=== PATIENT | female | born 1955 | race African-American/Black ===

== ENCOUNTER 2017-04-09 08:58 | Emergency (ER) | payer BC ==
[~2017-04-09] VITALS: Ht 160 cm; Wt 95.0 kg
[~2017-04-09 08:58] MED LIST: AMLODIPINE BESYL5 MG OR; AMLODIPINE BESYL5 MG PO; AMLODIPINE5 MG PO; AUGMENTIN875TAB PO; BENZONATATE200 MG PO; BRACE XX; COLCHICINE PO; COLCRYS PO; DOXYCYCL HYC100 MG PO; FLEXERIL10 MG PO; FLONASE NASAL50 MCG; FLUARIX QUADRIV1 IN1 IM; INDOCIN50 MG/CAP PO; INDOMETHACIN50 MG PO; LEVAQUIN750 MG PO; LORTAB 5/3255 MG PO; METFORMIN500 M1 PO; MUCINEX600 MG PO; NAPROSYN500 MG PO; NAPROXEN500 MG PO; PRAVASTATIN SOD10 MG PO; PREDNISONE20 MG PO; SIMETHICONE80 M2 PO
[2017-04-09] MEDS ORDERED: CORTISPORIN OTI10 M2 AU (09:35)
[2017-04-09] MEDS ORDERED: ERYTHROMYCIN O3.5 GM OD (09:35)
[2017-04-09] MEDS ORDERED: AMOXICILLIN500 M2 PO (09:35)
[2017-04-09 09:36] VITALS: BP 174/79
== END 2017-04-09 09:45 | disposition home or self-care (01) | DRG 153 ==
LOC: ED 08:58
DX: H66.92 Otitis media, unspecified, left ear (principal); H10.9 Unspecified conjunctivitis; H92.01 Otalgia, right ear

== ENCOUNTER 2018-04-08 09:26 | Day surgery (SDC) | payer BC ==
[~2018-04-08] VITALS: Ht 160 cm; Wt 94.8 kg
[~2018-04-08 09:26] MED LIST changes: +AMOXICILLIN500 M2 PO; +ASPIRIN ENTERIC81 MG PO; +CLARITIN10 M1 PO; +CORTISPORIN OTI10 M2 AU; +ERYTHROMYCIN O3.5 GM OD; +MOBIC7.5 M1 PO; +PRAVASTATIN SOD20 MG PO
[2018-04-08 12:45] VITALS: BP 168/73
== END 2018-04-08 12:22 | disposition home or self-care (01) | DRG 395 ==
LOC: ENDO 09:26 → ORM 12:40 → ENDO 12:40 → ORM 12:55
PROVIDERS: ATTEND Internal Medicine Gastroenterology
PROC: 0DBN8ZX Excision of Sigmoid Colon, Via Natural or Artificial Opening Endoscopic, Diagnostic (ICD-10-PCS; principal; 2018-04-08)
PROC: 0DBK8ZX Excision of Ascending Colon, Via Natural or Artificial Opening Endoscopic, Diagnostic (ICD-10-PCS; 2018-04-08)
PROC: 0DBH8ZX Excision of Cecum, Via Natural or Artificial Opening Endoscopic, Diagnostic (ICD-10-PCS; 2018-04-08)
PROC: 3E0H8KZ Introduction of Other Diagnostic Substance into Lower GI, Via Natural or Artificial Opening Endoscopic (ICD-10-PCS; 2018-04-08)
DX: D12.2 Benign neoplasm of ascending colon (principal); D12.0 Benign neoplasm of cecum; K63.5 Polyp of colon; K64.4 Residual hemorrhoidal skin tags; K64.8 Other hemorrhoids; K62.3 Rectal prolapse; I10 Essential (primary) hypertension; E66.9 Obesity, unspecified; E78.00 Pure hypercholesterolemia, unspecified; K21.9 Gastro-esophageal reflux disease without esophagitis; F17.200 Nicotine dependence, unspecified, uncomplicated; Z86.010 Personal history of colon polyps

== ENCOUNTER 2020-01-03 14:27 | Emergency (ER) | payer BC ==
[~2020-01-03] VITALS: Ht 160 cm; Wt 95.0 kg
[2020-01-03 16:40] VITALS: BP 114/55
== END 2020-01-03 16:44 | disposition home or self-care (01) | DRG 556 ==
LOC: ED 14:27
DX: M79.671 Pain in right foot (principal); I10 Essential (primary) hypertension; F17.210 Nicotine dependence, cigarettes, uncomplicated; W22.09XA Striking against other stationary object, initial encounter; Y92.003 Bedroom of unspecified non-institutional (private) residence as the place of occurrence of the external cause

== ENCOUNTER 2020-12-28 08:52 | Emergency (ER) | payer BC ==
[~2020-12-28] VITALS: Ht 160 cm; Wt 87.7 kg
[2020-12-28 11:00] LABS: HEMATOCRIT 47.6 % (37.0-47.0); HEMOGLOBIN 14.6 g/dl (12.0-16.0); IMMATURE GRANULOCYTES 0.1 % (0.0-5.0); MEAN CELL VOLUME 81.4 fL CALC (80.0-100.0); MEAN CORPUSCULAR HGB CONC 30.7 g/dL CAL (32.0-36.0); NEUT# 11.7 thou/uL (2.00-7.15); RED BLOOD COUNT 5.85 mill/uL (4.20-5.60); RED CELL DISTRI WIDTH 14.6 % (11.5-15.5)
[2020-12-28 11:01] LABS: URINE BLOOD DIPSTICK LARGE (NEGATIVE); URINE GLUCOSE - DIPSTICK NEGATIVE (NEGATIVE); URINE KETONE 15 mg/dL (NEGATIVE); URINE LEUK ESTERASE TRACE (NEGATIVE); URINE PH 5.5 (4.5-8.0); URINE PROTEIN - DIPSTICK 30 mg/dL (NEG-TRACE); URINE SPECIFIC GRAVITY >=1.030; URINE UROBILINOGEN - DIPSTICK 0.2 E.U./dL (0.2)
[2020-12-28 11:04] LABS: URINE BILIRUBIN - DIPSTICK NEGATIVE (NEGATIVE); URINE COLOR DK. YELLOW; URINE NITRITE - DIPSTICK NEGATIVE (Negative)
[2020-12-28 11:05] LABS: URINE RBC >100 RBC/hpf (0-5)
[2020-12-28 11:06] LABS: URINE SQUAMOUS EPITHELIAL CELL FEW EPI/hpf (0-FEW)
[2020-12-28 11:25] LABS: CREATININE 1.2 mg/dL (0.5-1.0)
[2020-12-28 11:50] LABS: ALBUMIN 4.8 g/dL (3.2-5.0); BILIRUBIN, TOTAL 1.5 mg/dL (0.0-1.4); TOTAL PROTEIN 8.8 g/dL (6.3-8.2)
[2020-12-28 13:28] VITALS: BP 118/70
[2020-12-28] MEDS ORDERED: CEPHALEXIN500 MG PO (14:10)
[2020-12-28] MEDS ORDERED: TAMSULOSIN0.4 MG PO (14:10)
[2020-12-28] MEDS ORDERED: LORTAB 1010 MG PO (14:10)
== END 2020-12-28 14:19 | disposition home or self-care (01) | DRG 694 ==
LOC: ED 08:52
PROVIDERS: Emergency Medicine
DX: N13.2 Hydronephrosis with renal and ureteral calculous obstruction (principal); I10 Essential (primary) hypertension; F17.200 Nicotine dependence, unspecified, uncomplicated
CPT/HCPCS: Q9967

== ENCOUNTER 2021-07-04 09:28 | Observation (INO) | payer MEDICARE, BC ==
[2021-07-04] VITALS (31 sets, daily range): BP systolic 78–173; BP diastolic 59–119
[~2021-07-04] VITALS: Ht 160 cm; Wt 87.7 kg
[~2021-07-04 09:28] MED LIST changes: +CEPHALEXIN500 MG PO; +LORTAB 1010 MG PO; +TAMSULOSIN0.4 MG PO
[2021-07-04 10:21] LABS: HEMATOCRIT 44.4 % (37.0-47.0); HEMOGLOBIN 13.2 g/dl (12.0-16.0); IMMATURE GRANULOCYTES 0.3 % (0.0-5.0); MEAN CELL VOLUME 83.5 fL CALC (80.0-100.0); MEAN CORPUSCULAR HGB 24.8 pG CALC (26.0-32.0); MEAN CORPUSCULAR HGB CONC 29.7 g/dL CAL (32.0-36.0); NEUT# 5.9 thou/uL (2.00-7.15); RED BLOOD COUNT 5.32 mill/uL (4.20-5.60); RED CELL DISTRI WIDTH 14.7 % (11.5-15.5)
[2021-07-04 10:26] LABS: ALKALINE PHOSPHATASE 102 u/l (38-126); ANION GAP 12 (6-22 (CALC)); BUN 13 mg/dL (8-23); BUN/CREATININE RATIO 18 (12-20 (CALC)); CARBON DIOXIDE 26 mmol/l (22-30); CHLORIDE 107 mmol/l (95-108); CREATININE 0.7 mg/dL (0.5-1.0); GFR > 60 ML/MIN (>=60 (CALC)); GFR FOR AFR.AMER. > 60 ML/MIN (>=60 (CALC)); POTASSIUM 3.2 mmol/l (3.5-5.1); SGOT/AST 24 u/l (9-36); SODIUM 143 mmol/l (137-146); TOTAL PROTEIN 7.1 g/dL (6.3-8.2)
[2021-07-04 10:34] LABS: BILIRUBIN, TOTAL 0.7 mg/dL (0.0-1.4)
--- NOTE | 2021-07-04 11:00 | NUR ---
Reassessment of patient completed. No distress noted.
--- NOTE | 2021-07-04 12:00 | NUR ---
ORTHO VITALS TAKEN AT THIS TIME. NEGTIVE RESULTS
--- NOTE | 2021-07-04 13:00 | NUR ---
Reassessment of patient completed. No distress noted.
--- NOTE | 2021-07-04 14:32 | NUR ---
PT UP TO RESTROOM AT THIS TIME. C/O LEFT FOOT/ANKLE PAIN. STATES SHE THINK SHE INJURED IT DURING SYNCOPAL EPISODE. PROVIDER CALLED FOR ORDERS.
--- NOTE | 2021-07-04 15:52 | NUR ---
GOT REPORT FROM ER NURSE. PATIENT ASSESSED, AOX3, C/O PAIN TO FOOT AND ANKLE. EDUCATION PROVIDED ABOUT FALL SAFETY AND BED ALARM. PATIENT AGREES NOT TO GET OUT OF BED WITHOUT ASSISTANCE. ORIENTATED PATIENT TO ROOM AND CALL VALE.
--- NOTE | 2021-07-04 16:08 | NUR ---
Patient is screened for intervention and may benefit from PT evaluation of orthostatic hypotension if medical agrees
--- NOTE | 2021-07-04 19:00 | NUR ---
RECIEVED REPORT FROM JARROD SAMPSON
--- NOTE | 2021-07-04 19:27 | NUR ---
PT RESTING IN SEMI FOWLERS POSITION. PT IS A/OX3. ASSESSMENT COMPLETED. RESPIRATIONS EVEN ANDUNLABORED ON ROOM AIR. LUNG SOUNDS CLEAR. HEART RHYTHM NORMAL WITH TELE IN PLACE. BOWEL SOUNDS ACTIVE, LBM 07/04/21. PULSES STRONG. #20G LH INFUSING WITH IVF PER ORDER, SITE HEALTHY AND PATENT. SKIN INTACT. 1+ EDEMA NOTED TO LEFT FOOT.ELEVATED WITH PILLOW. PT COMPLAINS OF 5/10 PAIN, PT REFUSES TYLENOL, " IT WLL NOT HELP." MD TO BE INFORMED. PT DENIES OF ANY ADDITIONAL NEEDS. ALL SAFTEY PRECAUTIONS ARE IN PLACE WITH CALL LIGHT IN REACH. WILL CONTINUE TO MONITOR
--- NOTE | 2021-07-04 21:34 | NUR ---
PT STATES THAT PAIN MEDICATION HAS NOT HELPED BUT IT IS MANAGABLE. ICE PACK PROVIDED.
--- NOTE | 2021-07-05 00:36 | NUR ---
PT SLEEPING IN SEMI FOWLERS PISITION WITH LEFT FOOT ELEVATED. RESPIRATIONS EVEN AND UNLABORED ON ROOM AIR. #20G LH INFUSING WITH IVF PER ORDER, SITE PATENT. TELE MONITORING IN PLACE. NO SIGNS OF ANY DISTRESS. ALL SAFTEY PRECAUTIONS ARE IN PLACE WITH CALL LIGHT IN REACH. WILL CONTINUE TO MONITOR
[2021-07-05 00:42] VITALS: BP 166/80
--- NOTE | 2021-07-05 03:00 | NUR ---
PT STATES LEFT ARM IS SWOLLEN. 2+ EDEMA NOTED TO LEFT ARM. #22G LH HALF WAY OUT. CATH COMPLETELY REMOVED AND INTACT. #22G RFA STARTED, MORNING LABS COLLECTED AT THIS TIME. SITE REMAINS HEALTHY AND PATENT, SECURED WITH COBAND. ICE PACK PROVIDED FOR SWELLING OF LEFT ARM, ELEVATED ON PILLOW.
[2021-07-05 03:57] LABS: MEAN CELL VOLUME 83.2 fL CALC (80.0-100.0); MEAN CORPUSCULAR HGB 24.8 pG CALC (26.0-32.0); MEAN CORPUSCULAR HGB CONC 29.8 g/dL CAL (32.0-36.0); RED BLOOD COUNT 4.4 mill/uL (4.20-5.60); RED CELL DISTRI WIDTH 14.6 % (11.5-15.5)
[2021-07-05 03:58] LABS: HEMATOCRIT 36.6 % (37.0-47.0); HEMOGLOBIN 10.9 g/dl (12.0-16.0)
[2021-07-05 04:17] LABS: ANION GAP 9 (6-22 (CALC)); BUN 11 mg/dL (8-23); BUN/CREATININE RATIO 20 (12-20 (CALC)); CARBON DIOXIDE 27 mmol/l (22-30); CHLORIDE 108 mmol/l (95-108); CREATININE 0.6 mg/dL (0.5-1.0); GFR > 60 ML/MIN (>=60 (CALC)); GFR FOR AFR.AMER. > 60 ML/MIN (>=60 (CALC)); MAGNESIUM 1.6 mg/dL (1.6-2.3); POTASSIUM 3.7 mmol/l (3.5-5.1); SODIUM 140 mmol/l (137-146)
--- NOTE | 2021-07-05 04:17 | NUR ---
PT SLEEPING IN SEMI FOWLERS POSITION. RESPIRATIONS EVEN AND UNLABORED ON ROOM AIR. TELE MONITORING IN PLACE. #22G RFA REMAINS INFUSING WITH IVF PER ORDER, SITE PATENT. EDEMA NOTED TO LUE, REMAINS ELAVATED ON PILLOW. NO SIGNS OF ANY PAINS. ALL SAFTEY PRECAUTIONS ARE IN PLACE. WILL CONTINUE TO MONITOR
[2021-07-05 04:24] VITALS: BP 206/94
[2021-07-05 04:27] VITALS: BP 185/89
[2021-07-05 05:04] VITALS: BP 161/69
--- NOTE | 2021-07-05 08:00 | NUR ---
PT SITTING ON SIDE OF THEN BED UPON ENTERING ROOM. STATES SLIGHT PAIN ON ANKLE. DENIES PAIN MEDICATION AT THIS TIME. ASSESSMENT ALLOWED. PEDAL PULSE STRONG LEFT ANKLE. TELE MONITOR IN PLACE, CONTINOUS MONITORING PER ED. FALL/SAFTEY PRECAUTION IN PLACE. CALL LIGHT WITHIN REACH.
[2021-07-05] MEDS ORDERED: TRAMADOL HCL50 MG PO (10:13)
[2021-07-05 11:02] VITALS: BP 140/71
--- NOTE | 2021-07-05 12:46 | NUR ---
Discharge instructions given. Patient verbalizes understanding of same. Discharged in stable condition via Wheelchair to Home with staff. All belongings sent with pt. IV REMOVED CATHETER FULLY REMOVED. TELE MONITOR REMOVED.
== END 2021-07-05 12:50 | disposition home or self-care (01) ==
LOC: ED 09:28 → ED-I 10:55 → ED 11:27 → MS2 11:28
PROVIDERS: Family Medicine; ADMIT Hospitalist; ATTEND Hospitalist
DX: R55 Syncope and collapse (principal); S92.325A Nondisplaced fracture of second metatarsal bone, left foot, initial encounter for closed fracture; S92.335A Nondisplaced fracture of third metatarsal bone, left foot, initial encounter for closed fracture; S92.345A Nondisplaced fracture of fourth metatarsal bone, left foot, initial encounter for closed fracture; S92.355A Nondisplaced fracture of fifth metatarsal bone, left foot, initial encounter for closed fracture; I10 Essential (primary) hypertension; F17.210 Nicotine dependence, cigarettes, uncomplicated; M19.90 Unspecified osteoarthritis, unspecified site; W18.30XA Fall on same level, unspecified, initial encounter; Y92.219 Unspecified school as the place of occurrence of the external cause; Y99.0 Civilian activity done for income or pay; Z20.822 Contact with and (suspected) exposure to COVID-19
CPT/HCPCS: J1650

== ENCOUNTER 2021-10-13 10:16 | Observation (INO) | payer MEDICARE ==
[2021-10-13] VITALS (8 sets, daily range): BP systolic 131–154; BP diastolic 64–85
[~2021-10-13] VITALS: Ht 160 cm; Wt 84.0 kg
[~2021-10-13 10:16] MED LIST changes: +TRAMADOL HCL50 MG PO
[2021-10-13 11:04] LABS: HEMATOCRIT 35.9 % (37.0-47.0); HEMOGLOBIN 10.7 g/dl (12.0-16.0); IMMATURE GRANULOCYTES 0.5 % (0.0-5.0); MEAN CORPUSCULAR HGB 23.2 pG CALC (26.0-32.0); MEAN CORPUSCULAR HGB CONC 29.8 g/dL CAL (32.0-36.0); NEUT# 14.03 thou/uL (2.00-7.15); RED BLOOD COUNT 4.61 mill/uL (4.20-5.60); RED CELL DISTRI WIDTH 13.9 % (11.5-15.5)
[2021-10-13 11:07] LABS: MEAN CELL VOLUME 77.9 fL CALC (80.0-100.0)
[2021-10-13] MEDS ORDERED: ERGOCALCIF50000 UNIT PO (11:08)
[2021-10-13] MEDS ORDERED: PREDNISONE10 MG PO (11:08)
[2021-10-13] MEDS ORDERED: TRAMADOL HCL50 MG PO (11:09)
[2021-10-13 11:22] LABS: ALBUMIN 3.8 g/dL (3.2-5.0); ALKALINE PHOSPHATASE 176 u/l (38-126); ANION GAP 13 (6-22 (CALC)); BILIRUBIN, TOTAL 1.8 mg/dL (0.0-1.4); BUN 18 mg/dL (8-23); BUN/CREATININE RATIO 20 (12-20 (CALC)); CARBON DIOXIDE 29 mmol/l (22-30); CHLORIDE 100 mmol/l (95-108); CREATININE 0.9 mg/dL (0.5-1.0); GFR FOR AFR.AMER. > 60 ML/MIN (>=60 (CALC)); GFR OTHER RACES > 60 ML/MIN (>=60 (CALC)); POTASSIUM 3.4 mmol/l (3.5-5.1); SGOT/AST 22 u/l (9-36); SODIUM 139 mmol/l (137-146); TOTAL PROTEIN 8.3 g/dL (6.3-8.2)
[2021-10-13 11:37] LABS: URINE BILIRUBIN - DIPSTICK MODERATE (NEGATIVE); URINE BLOOD DIPSTICK MODERATE (NEGATIVE); URINE COLOR DK. YELLOW; URINE GLUCOSE - DIPSTICK NEGATIVE (NEGATIVE); URINE KETONE TRACE mg/dL (NEGATIVE); URINE LEUK ESTERASE NEGATIVE (NEGATIVE); URINE NITRITE - DIPSTICK POSITIVE (Negative); URINE PH 5.5 (4.5-8.0); URINE PROTEIN - DIPSTICK 100 mg/dL (NEG-TRACE); URINE SPECIFIC GRAVITY >=1.030
[2021-10-13 11:46] LABS: URINE BACTERIA FEW hpf; URINE SQUAMOUS EPITHELIAL CELL MANY EPI/hpf (0-FEW); URINE WBC 0-2 WBC/hpf (0-5)
[2021-10-14 01:07] VITALS: BP 131/53
[2021-10-14 04:12] VITALS: BP 122/55
[2021-10-14 04:32] LABS: HEMOGLOBIN 10.2 g/dl (12.0-16.0); MEAN CELL VOLUME 79.1 fL CALC (80.0-100.0); MEAN CORPUSCULAR HGB 23.7 pG CALC (26.0-32.0); RED BLOOD COUNT 4.3 mill/uL (4.20-5.60); RED CELL DISTRI WIDTH 13.9 % (11.5-15.5)
[2021-10-14 04:50] LABS: ANION GAP 16 (6-22 (CALC)); BUN 22 mg/dL (8-23); BUN/CREATININE RATIO 32 (12-20 (CALC)); CARBON DIOXIDE 24 mmol/l (22-30); CHLORIDE 105 mmol/l (95-108); CREATININE 0.7 mg/dL (0.5-1.0); GFR FOR AFR.AMER. > 60 ML/MIN (>=60 (CALC)); GFR OTHER RACES > 60 ML/MIN (>=60 (CALC)); SODIUM 141 mmol/l (137-146)
[2021-10-14 04:52] LABS: MAGNESIUM 2.2 mg/dL (1.6-2.3)
[2021-10-14 06:39] VITALS: BP 121/71
[2021-10-14 10:24] VITALS: BP 135/69
[2021-10-14 14:58] VITALS: BP 145/71
[2021-10-14 19:27] VITALS: BP 122/58
[2021-10-15] VITALS (10 sets, daily range): BP systolic 114–161; BP diastolic 56–68
[2021-10-15 06:45] LABS: HEMATOCRIT 29.9 % (37.0-47.0); HEMOGLOBIN 9.2 g/dl (12.0-16.0); IMMATURE GRANULOCYTES 0.4 % (0.0-5.0); MEAN CELL VOLUME 78.1 fL CALC (80.0-100.0); MEAN CORPUSCULAR HGB CONC 30.8 g/dL CAL (32.0-36.0); NEUT# 11.57 thou/uL (2.00-7.15); RED BLOOD COUNT 3.83 mill/uL (4.20-5.60); RED CELL DISTRI WIDTH 13.8 % (11.5-15.5)
[2021-10-15 06:52] LABS: ANION GAP 13 (6-22 (CALC)); BUN 13 mg/dL (8-23); BUN/CREATININE RATIO 22 (12-20 (CALC)); CARBON DIOXIDE 25 mmol/l (22-30); CHLORIDE 107 mmol/l (95-108); CREATININE 0.6 mg/dL (0.5-1.0); GFR FOR AFR.AMER. > 60 ML/MIN (>=60 (CALC)); GFR OTHER RACES > 60 ML/MIN (>=60 (CALC)); MAGNESIUM 2.1 mg/dL (1.6-2.3); POTASSIUM 3.7 mmol/l (3.5-5.1); SODIUM 142 mmol/l (137-146)
[2021-10-15 08:41] LABS: C-REACTIVE PROTEIN 34.5 mg/dL (0-0.9)
[2021-10-16] VITALS (7 sets, daily range): BP systolic 122–162; BP diastolic 56–76
[2021-10-16 05:43] LABS: HEMOGLOBIN 8.7 g/dl (12.0-16.0); IMMATURE GRANULOCYTES 0.5 % (0.0-5.0); MEAN CELL VOLUME 77.1 fL CALC (80.0-100.0); MEAN CORPUSCULAR HGB CONC 31.1 g/dL CAL (32.0-36.0); RED BLOOD COUNT 3.63 mill/uL (4.20-5.60); RED CELL DISTRI WIDTH 13.7 % (11.5-15.5)
[2021-10-16 06:01] LABS: BUN 13 mg/dL (8-23); BUN/CREATININE RATIO 25 (12-20 (CALC)); CARBON DIOXIDE 27 mmol/l (22-30); CHLORIDE 105 mmol/l (95-108); CREATININE 0.5 mg/dL (0.5-1.0); GFR FOR AFR.AMER. > 60 ML/MIN (>=60 (CALC)); GFR OTHER RACES > 60 ML/MIN (>=60 (CALC)); MAGNESIUM 1.8 mg/dL (1.6-2.3); SODIUM 140 mmol/l (137-146)
[2021-10-16 06:06] LABS: ANION GAP 11 (6-22 (CALC)); POTASSIUM 3.3 mmol/l (3.5-5.1)
[2021-10-16] MEDS ORDERED: TRAMADOL HCL50 MG PO (12:29)
== END 2021-10-16 13:34 ==
LOC: ED 10:16 → ED-I 12:27 → ED 12:40 → MS2 12:41
PROVIDERS: Family Medicine; Nurse Practitioner; ADMIT Internal Medicine; ATTEND Internal Medicine
DX: M06.9 Rheumatoid arthritis, unspecified (principal); N39.0 Urinary tract infection, site not specified; I10 Essential (primary) hypertension; E78.5 Hyperlipidemia, unspecified; M10.9 Gout, unspecified; F17.210 Nicotine dependence, cigarettes, uncomplicated; Z96.651 Presence of right artificial knee joint; Z20.822 Contact with and (suspected) exposure to COVID-19
CPT/HCPCS: J1650; Q9967

== ENCOUNTER 2022-01-16 11:14 | Observation (INO) | payer MEDICARE ==
[~2022-01-16] VITALS: Ht 160 cm; Wt 81.6 kg
[2022-01-16] VITALS (7 sets, daily range): BP systolic 130–159; BP diastolic 68–100
[~2022-01-16 11:14] MED LIST changes: +ERGOCALCIF50000 UNIT PO; +PREDNISONE10 MG PO
[2022-01-16 11:48] LABS: IMMATURE GRANULOCYTES 0.6 % (0.0-5.0); MEAN CELL VOLUME 79.5 fL CALC (80.0-100.0); MEAN CORPUSCULAR HGB 24.8 pG CALC (26.0-32.0); MEAN CORPUSCULAR HGB CONC 31.2 g/dL CAL (32.0-36.0); NEUT# 11.01 thou/uL (2.00-7.15); RED BLOOD COUNT 5.21 mill/uL (4.20-5.60)
[2022-01-16 11:55] LABS: HEMATOCRIT 41.4 % (37.0-47.0); HEMOGLOBIN 12.9 g/dl (12.0-16.0)
[2022-01-16 12:25] LABS: URINE BILIRUBIN - DIPSTICK NEGATIVE (NEGATIVE); URINE BLOOD DIPSTICK TRACE-INTACT (NEGATIVE); URINE COLOR YELLOW; URINE GLUCOSE - DIPSTICK >=1000 mg/dL (NEGATIVE); URINE KETONE TRACE mg/dL (NEGATIVE); URINE LEUK ESTERASE NEGATIVE (NEGATIVE); URINE NITRITE - DIPSTICK NEGATIVE (Negative); URINE PROTEIN - DIPSTICK NEGATIVE (NEG-TRACE); URINE SPECIFIC GRAVITY <=1.005; URINE UROBILINOGEN - DIPSTICK 0.2 E.U./dL (0.2)
[2022-01-16 12:38] LABS: ALBUMIN 4.4 g/dL (3.2-5.0); ALKALINE PHOSPHATASE 179 u/l (38-126); BUN 11 mg/dL (8-23); BUN/CREATININE RATIO 14 (12-20 (CALC)); CARBON DIOXIDE 28 mmol/l (22-30); CHLORIDE 96 mmol/l (95-108); CREATININE 0.8 mg/dL (0.5-1.0); GFR FOR AFR.AMER. > 60 ML/MIN (>=60 (CALC)); GFR OTHER RACES > 60 ML/MIN (>=60 (CALC)); SGOT/AST 25 u/l (9-36); SODIUM 136 mmol/l (137-146); TOTAL PROTEIN 7.4 g/dL (6.3-8.2)
[2022-01-16 12:50] LABS: ANION GAP 16 (6-22 (CALC)); BILIRUBIN, TOTAL 0.7 mg/dL (0.0-1.4); POTASSIUM 4.2 mmol/l (3.5-5.1)
[2022-01-16] MEDS ORDERED: METFORMIN HCL500 M1 PO (15:01)
[2022-01-17] VITALS (7 sets, daily range): BP systolic 117–137; BP diastolic 68–79
[2022-01-17 05:56] LABS: MEAN CELL VOLUME 81.4 fL CALC (80.0-100.0); MEAN CORPUSCULAR HGB 24.7 pG CALC (26.0-32.0); MEAN CORPUSCULAR HGB CONC 30.3 g/dL CAL (32.0-36.0); RED BLOOD COUNT 4.3 mill/uL (4.20-5.60); RED CELL DISTRI WIDTH 15.2 % (11.5-15.5)
[2022-01-17 06:11] LABS: HEMOGLOBIN 10.6 g/dl (12.0-16.0)
[2022-01-17 06:29] LABS: BUN 8 mg/dL (8-23); BUN/CREATININE RATIO 16 (12-20 (CALC)); CALCULATED LDLCHOLESTEROL 85 mg/dL (62-129 (CALC)); CARBON DIOXIDE 28 mmol/l (22-30); CHLORIDE 105 mmol/l (95-108); CREATININE 0.5 mg/dL (0.5-1.0); GFR FOR AFR.AMER. > 60 ML/MIN (>=60 (CALC)); GFR OTHER RACES > 60 ML/MIN (>=60 (CALC)); HDL CHOLESTEROL 56 mg/dL (>=40); MAGNESIUM 1.9 mg/dL (1.6-2.3); POTASSIUM 3.5 mmol/l (3.5-5.1); TOTAL CHOLESTEROL 199 mg/dl (0-199); TOTAL TRIGLYCERIDES 289 mg/dl (30-149); VLDL CHOLESTROL 58 mg/dl (1-41 (CALC))
[2022-01-17 06:31] LABS: ANION GAP 9 (6-22 (CALC)); SODIUM 138 mmol/l (137-146)
[2022-01-17] MEDS ORDERED: LEVEMIR FL100 UNIT/M SC (11:37)
[2022-01-18 03:39] VITALS: BP 124/78
[2022-01-18 07:28] VITALS: BP 130/75
[2022-01-18 10:39] VITALS: BP 131/75
[2022-01-18 16:48] VITALS: BP 126/74
== END 2022-01-18 19:14 | disposition home health service (06) ==
LOC: ED 11:14 → ED-I 14:05 → MS2 14:19 → ED 14:19 → MS2 14:19
PROVIDERS: Family Medicine; ADMIT Internal Medicine; ATTEND Internal Medicine
DX: E11.65 Type 2 diabetes mellitus with hyperglycemia (principal); T38.0X5A Adverse effect of glucocorticoids and synthetic analogues, initial encounter; Y92.009 Unspecified place in unspecified non-institutional (private) residence as the place of occurrence of the external cause; Z79.52 Long term (current) use of systemic steroids; E66.9 Obesity, unspecified; I10 Essential (primary) hypertension; R41.0 Disorientation, unspecified; Z72.0 Tobacco use; R53.1 Weakness; H53.8 Other visual disturbances; Z20.822 Contact with and (suspected) exposure to COVID-19
CPT/HCPCS: J1650